=== PATIENT | female | born 1990 | race Two or more races ===

== ENCOUNTER 2022-03-14 12:18 | Emergency (ER) | payer OTHER ==
[~2022-03-14] VITALS: Ht 170.2 cm; Wt 59.0 kg
== END 2022-03-14 17:20 | disposition home or self-care (01) ==
LOC: ER 12:18
DX: S06.0X9A Concussion with loss of consciousness of unspecified duration, initial encounter (principal); Z91.09 Other allergy status, other than to drugs and biological substances; F90.9 Attention-deficit hyperactivity disorder, unspecified type; E72.11 Homocystinuria; W22.8XXA Striking against or struck by other objects, initial encounter; Y93.9 Activity, unspecified; Y92.9 Unspecified place or not applicable